=== PATIENT | male | born 1955 | race Caucasian/White ===

== ENCOUNTER 2017-10-23 13:18 | Inpatient (IN) ==
[2017-10-23] MEDS ORDERED: methylPREDNISolone SOD SUC 125 MG/2 ML VIAL IV STA (13:38)
[2017-10-23] MEDS ORDERED: ONDANSETRON 4 MG/2 ML VIAL IV STA (13:38)
[2017-10-23] MEDS ORDERED: ALBUTEROL/IPRATROPIUM 3 ML NEB RESP TX STA (13:38)
[2017-10-23] MEDS ORDERED: FUROSEMIDE 100 MG/10 ML VIAL IV STA (13:38)
[2017-10-23] MEDS ORDERED: AZITHROMYCIN INJ 500 MG in SODIUM CHLORIDE 0.9% 250 ML IV STA (13:38)
[2017-10-23] MEDS ORDERED: TERBUTALINE 1 MG/1 ML VIAL SUBCUT ONE ×2 (14:32→15:27)
[2017-10-23] MEDS ORDERED: FUROSEMIDE 40 MG/4 ML VIAL ONE (14:32)
[2017-10-23] MEDS ORDERED: FUROSEMIDE 20 MG/2 ML VIAL ONE (14:33)
[2017-10-23] MEDS ORDERED: methylPREDNISolone SOD SUC 125 MG/2 ML VIAL ONE (14:33)
[2017-10-23] MEDS ORDERED: ONDANSETRON 4 MG/2 ML VIAL ONE ×2 (14:33→17:07)
[2017-10-23] MEDS: TERBUTALINE 1 MG/1 ML VIAL SUBCUT SCH ×2 (14:45→15:26)
[2017-10-23 15:16] LABS: Basophils # 0.1 10*3/uL (0.0-0.2); Basophils % 1.1 % (0.0-0.8); Eosinophils # 0.3 10*3/uL (0.0-0.87); Eosinophils % 3.1 % (0.00-10.9); Hematocrit 39.8 VOL% (42.0-52.0); Hemoglobin 11.8 GM/DL (14.0-18.0); Immature Granulocytes % 1.6 %; Immature Granulocytes Absolute 0.13 #; Lymphocytes # 1.1 10*3/uL (1.4-4.0); Lymphocytes % 12.9 % (21.2-54.2); Mean Corpuscular HGB Conc 29.6 GM/DL (32-36); Mean Corpuscular Hemoglobin 22 PG (27-34); Mean Corpuscular Volume 73.6 FL (87-102); Mean Platelet Volume 9.9 FL (9.6-12.0); Monocytes # 0.8 10*3/uL (0.11-0.8); Monocytes % 10.2 % (1.7-12.7); Neutrophils # 5.8 10*3/uL (1.4-7.4); Neutrophils % 71.1 % (38.7-73.9); Platelet Count 174 T/CUMM (130-400); Red Blood Count 5.41 MC/CUMM (3.8-5.5); Red Cell Distribution Width 17.6 % (9.3-17.3); White Blood Count 8.2 T/CUMM (4-12)
[2017-10-23 15:22] LABS: Apearance,Urine CLEAR (Clear); Bilirubin,Urine Negative (Negative); Blood, Urine Negative (Negative); Glucose,Urine (UA) Negative (Negative); Ketones,Urine Negative (Negative); Mucus,Urine Occasional /LPF (Occasional); Nitrite,Urine Negative (Negative); Protein,Urine Negative; RBC,Urine <1 /HPF (0-4); Urine Color Yellow (Yellow); Urine Specific Gravity 1.003 (1.001-1.035); Urine Urobilinogen < 2.0 EU/DL (0.2-1.0); WBC,Urine <1 /HPF (0-6)
[2017-10-23 15:33] LABS: Alanine Aminotransferase 32 U/L (16-61); Albumin 4.3 G/DL (3.4-5.0); Alkaline Phosphatase 67 U/L (45-117); Aspartate Amino Transferase 20 U/L (0-37); Bilirubin,Total < 0.39 MG/DL (0.2-1.0); Blood Urea Nitrogen 11 MG/DL (7-18); CKMB % 1.8 %; Calcium 8.8 MG/DL (8.5-10.1); Glucose 174 MG/DL (74-106); Osmolality,Calculated 257.2 MOS/KG (273-304); Potassium 4.6 MMOL/L (3.5-5.1); Sodium 127 MMOL/L (136-145); Total Protein 7.4 G/DL (6.4-8.3); Troponin I Only < 0.015 NG/ML (0.00-0.045)
[2017-10-23 15:45] LABS: Barbiturates Screen,Urine Positive (Negative); Benzodiazepines Screen,Urine Negative (Negative); Cannabinoid Screen,Urine Negative (Negative); Opiate Screen,Urine Negative (Negative); Phencyclidine Screen,Urine Negative (Negative)
[2017-10-23] MEDS ORDERED: AZITHROMYCIN 500 MG VIAL IV ONE (16:45)
[2017-10-23] MEDS ORDERED: DEXTROSE 50% 25 GM/50 ML VIAL IV PRN (16:51)
[2017-10-23] MEDS ORDERED: GLUCAGON 1 MG VIAL IM PRN (16:51)
[2017-10-23] MEDS ORDERED: BACLOFEN 10 MG TABLET PO PRN (16:53)
[2017-10-23] MEDS ORDERED: PROMETHAZINE 25 MG TABLET PO PRN (16:53)
[2017-10-23] MEDS ORDERED: ONDANSETRON 4 MG TABLET PO PRN (16:53)
[2017-10-23] MEDS ORDERED: PROCHLORPERAZINE 10 MG TABLET PO PRN (16:53)
[2017-10-23] MEDS ORDERED: ALBUTEROL/IPRATROPIUM 3 ML NEB RESP TX PRN (16:55)
[2017-10-23] MEDS ORDERED: ENOXAPARIN 40 MG/0.4 ML SYRINGE SUBCUT SCH (17:00)
[2017-10-23 17:48] LABS: PT Patient Result 10.6 SECS
[2017-10-23 17:49] LABS: Partial Thromboplastin Time 25.4 SECS (0-40)
[2017-10-23] MEDS: ALBUTEROL/IPRATROPIUM 3 ML NEB RESP TX SCH (19:09)
[2017-10-23] MEDS: metFORMIN 500 MG TABLET PO SCH (19:37)
[2017-10-23] MEDS ORDERED: RIBOFLAVIN 200 MG PO SCH (21:00)
[2017-10-23] MEDS ORDERED: INSULIN GLARGINE 100 UNIT/ML SUBCUT SCH (21:00)
[2017-10-23] MEDS ORDERED: FUROSEMIDE 40 MG/4 ML VIAL IV ONE (21:00)
[2017-10-23] MEDS: glipiZIDE 10 MG TABLET PO SCH (22:02)
[2017-10-23] MEDS: INSULIN REGULAR 100 UNIT/ML SUBCUT SCH (22:02)
[2017-10-23] MEDS: TOPIRAMATE 100 MG TABLET PO SCH (22:03)
[2017-10-23] MEDS: AMITRIPTYLINE 50 MG TABLET PO SCH (22:03)
[2017-10-24] MEDS: ALBUTEROL/IPRATROPIUM 3 ML NEB RESP TX SCH ×2 (00:02→07:25)
[2017-10-24 05:56] LABS: Calcium 8.8 MG/DL (8.5-10.1); Osmolality,Calculated 262.9 MOS/KG (273-304); Potassium 4.4 MMOL/L (3.5-5.1)
[2017-10-24] MEDS ORDERED: VERAPAMIL SR 180 MG TABLET PO SCH (08:00)
[2017-10-24 08:44] VITALS: BP 150/87
[2017-10-24] MEDS ORDERED: LOSARTAN 50 MG TABLET PO SCH (09:00)
[2017-10-24] MEDS ORDERED: SPIRONOLACTONE 25 MG TABLET PO SCH (09:00)
[2017-10-24] MEDS ORDERED: NON-FORMULARY MEDICATION (Cranberry Conc/C/Bacill Coag [Cranberry Tablet] 1 EACH) PO SCH (09:00)
[2017-10-24] MEDS ORDERED: CALCIUM (CARBONATE)/VITAMIN D 600 MG-400 UNIT TABLET PO SCH (09:00)
[2017-10-24] MEDS ORDERED: ROSUVASTATIN 10 MG TABLET PO SCH (09:00)
[2017-10-24] MEDS ORDERED: PANTOPRAZOLE 40 MG TABLET PO SCH (09:00)
[2017-10-24] MEDS ORDERED: METOPROLOL SUCCINATE XL 50 MG TABLET PO SCH (09:00)
[2017-10-24] MEDS ORDERED: CHOLECALCIFEROL 5,000 UNIT TABLET PO SCH (09:00)
[2017-10-24] MEDS ORDERED: CYANOCOBALAMIN 500 MCG TABLET PO SCH (09:00)
[2017-10-24] MEDS: glipiZIDE 10 MG TABLET PO SCH (09:06)
[2017-10-24] MEDS: TOPIRAMATE 100 MG TABLET PO SCH (09:07)
[2017-10-24] MEDS: metFORMIN 500 MG TABLET PO SCH (09:07)
[2017-10-24] MEDS: AMITRIPTYLINE 50 MG TABLET PO SCH (09:08)
[2017-10-24] MEDS: INSULIN REGULAR 100 UNIT/ML SUBCUT SCH (09:08)
[2017-10-25] MEDS ORDERED: TESTOSTERONE CYPIONATE 1,000 MG/10 ML VIAL IM SCH (09:00)
== END 2017-10-24 11:08 | disposition home or self-care (01) | DRG 202 ==
LOC: EDUNIT# → EDBD → N.EDINP 13:18 → N.ED 13:18 → OBSVTOIN 16:48 → SUATTDRO 16:51 → N.TELES 17:15
PROVIDERS: ADMIT Internal Medicine Cardiovascular Disease; ATTEND Hospitalist

== ENCOUNTER 2019-08-14 08:47 | Observation (INO) ==
[2019-08-14 10:01] LABS: Basophils # 0.1 10*3/uL (0.0-0.2); Basophils % 0.8 % (0.0-0.8); Eosinophils # 0.3 10*3/uL (0.0-0.87); Eosinophils % 2.7 % (0.00-10.9); Hematocrit 39.5 VOL% (42.0-52.0); Hemoglobin 13.8 GM/DL (14.0-18.0); Immature Granulocytes % 1.2 %; Immature Granulocytes Absolute 0.11 #; Lymphocytes # 1.6 10*3/uL (1.4-4.0); Lymphocytes % 16.8 % (21.2-54.2); Mean Corpuscular HGB Conc 34.9 GM/DL (32-36); Mean Platelet Volume 9.4 FL (9.6-12.0); Neutrophils % 71.5 % (38.7-73.9); Platelet Count 256 T/CUMM (130-400); Red Blood Count 4.34 MC/CUMM (3.8-5.5); Red Cell Distribution Width 12.8 % (9.3-17.3); White Blood Count 9.3 T/CUMM (4-12)
[2019-08-14 10:13] LABS: Apearance,Urine Slightly Hazy (Clear); Bilirubin,Urine Negative (Negative); Blood, Urine Negative (Negative); Glucose,Urine (UA) 50 mg/dL (Negative); Ketones,Urine Negative (Negative); Mucus,Urine Occasional /LPF (Occasional); Nitrite,Urine Negative (Negative); Protein,Urine Negative; RBC,Urine <1 /HPF (0-4); Urine Color Yellow (Yellow); Urine Specific Gravity 1.011 (1.001-1.035); Urine Urobilinogen < 2.0 EU/DL (0.2-1.0); WBC,Urine <1 /HPF (0-6)
[2019-08-14 10:21] LABS: Barbiturates Screen,Urine Negative (Negative); Benzodiazepines Screen,Urine Negative (Negative); Cannabinoid Screen,Urine Negative (Negative); Opiate Screen,Urine Positive (Negative); Phencyclidine Screen,Urine Negative (Negative)
[2019-08-14 10:24] LABS: Alanine Aminotransferase 45 U/L (16-61); Alkaline Phosphatase 95 U/L (45-117); Aspartate Amino Transferase 20 U/L (0-37); Blood Urea Nitrogen 12 MG/DL (7-18); Calcium 9.1 MG/DL (8.5-10.1); Estimated Glom Filtration Rate 120 ML/MIN; Glucose 176 MG/DL (74-106); Osmolality,Calculated 260.1 MOS/KG (273-304); Total Protein 7.2 G/DL (6.4-8.3)
[2019-08-14 10:29] LABS: PT Patient Result 10.5 SECS (9.6-12.2); Partial Thromboplastin Time 24.5 SECS (20.8-36.0)
[2019-08-14] MEDS ORDERED: ACETAMINOPHEN 325 MG TABLET PO PRN (11:29)
[2019-08-14] MEDS ORDERED: ONDANSETRON 4 MG/2 ML VIAL IV PRN (11:29)
[2019-08-14] MEDS ORDERED: TRIAMTERENE/HCTZ 37.5-25 MG TABLET PO PRN (11:33)
[2019-08-14] MEDS ORDERED: DEXTROSE 50% 25 GM/50 ML VIAL IV PRN (11:44)
[2019-08-14] MEDS ORDERED: GLUCAGON 1 MG VIAL IM PRN ×2 (11:44→13:27)
[2019-08-14] MEDS ORDERED: DEXTROSE 10% 25 GM/250 ML BAG IV PRN (13:27)
[2019-08-14] MEDS: Albuterol Sulfate [Ventolin Hfa] 2 PUFF INH SCH (15:22)
[2019-08-14] MEDS: BACLOFEN 10 MG TABLET PO SCH ×2 (16:15→20:30)
[2019-08-14] MEDS: METOCLOPRAMIDE 10 MG/10 ML UDCUP PO SCH ×2 (16:16→20:32)
[2019-08-14] MEDS: INSULIN LISPRO 100 UNIT/ML SUBCUT SCH ×2 (17:58→22:51)
[2019-08-14] MEDS: rOPINIRole 0.25 MG TABLET PO SCH (20:30)
[2019-08-14] MEDS: carBAMazepine 200 MG TABLET PO SCH (20:30)
[2019-08-14] MEDS: LOSARTAN 50 MG TABLET PO SCH (20:31)
[2019-08-14] MEDS: RIBOFLAVIN 200 MG PO SCH (20:33)
[2019-08-15 05:04] LABS: Basophils # 0.1 10*3/uL (0.0-0.2); Basophils % 0.6 % (0.0-0.8); Eosinophils # 0.3 10*3/uL (0.0-0.87); Eosinophils % 3.4 % (0.00-10.9); Hematocrit 39.4 VOL% (42.0-52.0); Hemoglobin 13.6 GM/DL (14.0-18.0); Immature Granulocytes % 1.3 %; Immature Granulocytes Absolute 0.11 #; Lymphocytes # 1.6 10*3/uL (1.4-4.0); Lymphocytes % 17.7 % (21.2-54.2); Mean Corpuscular HGB Conc 34.5 GM/DL (32-36); Mean Corpuscular Volume 91.6 FL (87-102); Mean Platelet Volume 9.4 FL (9.6-12.0); Monocytes % 9.2 % (1.7-12.7); Neutrophils % 67.8 % (38.7-73.9); Platelet Count 239 T/CUMM (130-400); Red Cell Distribution Width 13.1 % (9.3-17.3); White Blood Count 8.8 T/CUMM (4-12)
[2019-08-15 05:48] LABS: Albumin 3.8 G/DL (3.4-5.0); Bilirubin,Total 0.8 MG/DL (0.2-1.0); Calcium 8.6 MG/DL (8.5-10.1); Osmolality,Calculated 263.7 MOS/KG (273-304); Risk Ratio 5.14; Thyroid Stimulating Hormone 1.17 uIU/ml (0.358-3.74); Total Protein 6.8 G/DL (6.4-8.3); VLDL CHOLESTEROL 51.4 MG/DL
[2019-08-15] MEDS: PROPRANOLOL 40 MG TABLET PO SCH (08:33)
[2019-08-15] MEDS: carBAMazepine 200 MG TABLET PO SCH ×2 (08:34→20:07)
[2019-08-15] MEDS: CALCIUM (CARBONATE)/VITAMIN D 600 MG-400 UNIT TABLET PO SCH (08:34)
[2019-08-15] MEDS: FERROUS SULFATE 325 MG TABLET PO SCH (08:34)
[2019-08-15] MEDS: METOPROLOL SUCCINATE XL 100 MG TABLET PO SCH (08:34)
[2019-08-15] MEDS: amLODIPine 10 MG TABLET PO SCH (08:35)
[2019-08-15] MEDS: ASPIRIN CHEW 81 MG TABLET PO SCH (08:35)
[2019-08-15] MEDS: CHOLECALCIFEROL 5,000 UNIT TABLET PO SCH (08:35)
[2019-08-15] MEDS: BACLOFEN 10 MG TABLET PO SCH ×3 (08:35→20:07)
[2019-08-15] MEDS: ASCORBIC ACID 500 MG TABLET PO SCH (08:36)
[2019-08-15] MEDS: PANTOPRAZOLE 40 MG TABLET PO SCH (08:36)
[2019-08-15] MEDS: RIBOFLAVIN 200 MG PO SCH (08:38)
[2019-08-15] MEDS: METOCLOPRAMIDE 10 MG/10 ML UDCUP PO SCH ×3 (08:38→17:03)
[2019-08-15] MEDS: CRANBERRY C BACILLUS COAG PO SCH (08:38)
[2019-08-15] MEDS: INSULIN LISPRO 100 UNIT/ML SUBCUT SCH ×3 (09:21→16:57)
[2019-08-15] MEDS: Albuterol Sulfate [Ventolin Hfa] 2 PUFF INH SCH (13:17)
[2019-08-15] MEDS: rOPINIRole 0.25 MG TABLET PO SCH (20:07)
[2019-08-15] MEDS: LOSARTAN 50 MG TABLET PO SCH (20:07)
[2019-08-16] MEDS: INSULIN LISPRO 100 UNIT/ML SUBCUT SCH ×2 (00:43→08:41)
[2019-08-16] MEDS: RIBOFLAVIN 200 MG PO SCH ×2 (00:44→08:50)
[2019-08-16] MEDS: METOCLOPRAMIDE 10 MG/10 ML UDCUP PO SCH ×3 (00:44→11:57)
[2019-08-16 06:20] LABS: Basophils # 0.1 10*3/uL (0.0-0.2); Basophils % 0.7 % (0.0-0.8); Eosinophils # 0.3 10*3/uL (0.0-0.87); Eosinophils % 3.5 % (0.00-10.9); Hematocrit 38.9 VOL% (42.0-52.0); Immature Granulocytes % 1.3 %; Lymphocytes # 1.5 10*3/uL (1.4-4.0); Lymphocytes % 19.9 % (21.2-54.2); Mean Corpuscular HGB Conc 33.4 GM/DL (32-36); Mean Corpuscular Volume 92.8 FL (87-102); Mean Platelet Volume 9.5 FL (9.6-12.0); Monocytes % 7.7 % (1.7-12.7); Neutrophils % 66.9 % (38.7-73.9); Platelet Count 219 T/CUMM (130-400); Red Blood Count 4.19 MC/CUMM (3.8-5.5); Red Cell Distribution Width 13.2 % (9.3-17.3); White Blood Count 7.5 T/CUMM (4-12)
[2019-08-16 06:43] LABS: Albumin 3.6 G/DL (3.4-5.0); Bilirubin,Total 0.9 MG/DL (0.2-1.0); Calcium 8.6 MG/DL (8.5-10.1); Osmolality,Calculated 269.7 MOS/KG (273-304); Total Protein 6.7 G/DL (6.4-8.3)
[2019-08-16] MEDS: PROPRANOLOL 40 MG TABLET PO SCH (08:38)
[2019-08-16] MEDS: FERROUS SULFATE 325 MG TABLET PO SCH (08:39)
[2019-08-16] MEDS: ASCORBIC ACID 500 MG TABLET PO SCH (08:39)
[2019-08-16] MEDS: CHOLECALCIFEROL 5,000 UNIT TABLET PO SCH (08:40)
[2019-08-16] MEDS: carBAMazepine 200 MG TABLET PO SCH (08:40)
[2019-08-16] MEDS: amLODIPine 10 MG TABLET PO SCH (08:40)
[2019-08-16] MEDS: CALCIUM (CARBONATE)/VITAMIN D 600 MG-400 UNIT TABLET PO SCH (08:40)
[2019-08-16] MEDS: METOPROLOL SUCCINATE XL 100 MG TABLET PO SCH (08:40)
[2019-08-16] MEDS: PANTOPRAZOLE 40 MG TABLET PO SCH (08:40)
[2019-08-16] MEDS: ASPIRIN CHEW 81 MG TABLET PO SCH (08:40)
[2019-08-16] MEDS: BACLOFEN 10 MG TABLET PO SCH (08:40)
[2019-08-16] MEDS: CRANBERRY C BACILLUS COAG PO SCH (08:41)
[2019-08-16] MEDS ORDERED: cloNIDine 0.3 MG/24 HR PATCH TRANSDERM SCH (09:00)
[2019-08-16 09:57] VITALS: BP 145/74
[2019-08-16] MEDS: Albuterol Sulfate [Ventolin Hfa] 2 PUFF INH SCH (11:57)
== END 2019-08-16 12:23 | disposition home or self-care (01) ==
LOC: N.ED 08:47 → N.EDINP 08:47 → N.4E 12:19
PROVIDERS: ADMIT Internal Medicine; ATTEND Internal Medicine